=== PATIENT | female | born 2000 | race Caucasian/White ===

== ENCOUNTER → 2020-06-12 | Outpatient (CLI) | payer OTHER ==
--- NOTE | 2020-06-12 11:04 | KCIC ---
EXAMINATION: MRI PELVIS WO CONTRAST INDICATIONS: Concern for bilateral pelvic fractures, bilateral groin pain after going through training in January.. TECHNIQUE: Multiplanar multisequence MRI of the pelvis was obtained without contrast. COMPARISON: None. FINDINGS: There are healing nondisplaced bilateral inferior pubic rami fractures with low signal fracture lines and marrow edema in the bone, and surrounding callus formation. No other fracture or marrow edema. The exam was not optimized to evaluate cartilage or labrum, however there appears to be cartilage loss at the superior medial left hip. The pubic symphysis and sacroiliac joints are normal. Muscles, and tendons are intact. No bursitis. Lower lumbar spine and pelvic contents are unremarkable. IMPRESSION: 1. Healing bilateral inferior pubic rami fractures. 2. There appears to be cartilage loss in the superior medial left hip. Electronically signed by: Margaux Reynolds MD (06/12/2020 11:01 AM) [id number]
== END ==
LOC: KCIC MRI 08:34
PROVIDERS: ATTEND Family Medicine
DX: S32.89XD Fracture of other parts of pelvis, subsequent encounter for fracture with routine healing (principal); X58.XXXD Exposure to other specified factors, subsequent encounter
CPT/HCPCS: 72195